=== PATIENT | male | born 1965 | race Caucasian/White ===

== ENCOUNTER 2020-09-18 10:10 | Outpatient (CLI) | payer BC, SELFPAY ==
[2020-09-22 23:49] LABS: Patient Race White; SARS-CoV-2 RNA Undetected (Undetected); SARS-CoV-2 Specimen Source Nasal
== END 2020-09-18 10:30 ==
PROVIDERS: PCP Family Medicine; Visit Provider Family Medicine
DX: R05 Cough (principal); R06.02 Shortness of breath
CPT/HCPCS: U0003

== ENCOUNTER 2020-09-23 15:19 | Outpatient (REF) | payer BC, SELFPAY ==
[2020-09-28 16:08] LABS: SARS-CoV-2 RNA Undetected (Undetected); SARS-CoV-2 Specimen Source Nasopharynx
== END 2020-09-23 15:39 ==
LOC: NCHCN 15:19
PROVIDERS: PCP Family Medicine; Visit Provider Nurse Practitioner Family
DX: J06.9 Acute upper respiratory infection, unspecified (principal); Z11.59 Encounter for screening for other viral diseases
CPT/HCPCS: 87449; U0003

== ENCOUNTER 2020-10-06 03:45 | Outpatient (CLI) | payer BC, SELFPAY ==
[2020-10-06 12:28] LABS: Abs Immature Grans 0.02 10^3/uL (0.0-0.06); Absolute Basophil Count 0.03 10^3/uL (0.0-0.2); Absolute Eosinophil Count 0.15 10^3/uL (0.0-0.7); Absolute Lymphocyte Count 1.85 10^3/uL (1.2-3.4); Absolute Monocyte Count 0.54 10^3/uL (0.1-0.8); Absolute Neutrophil Count 2.44 10^3/uL (1.2-6.7); Basophils % 0.6; HGB 14.3 g/dL (13.5-17.5); Immature Grans % 0.4; Lymphocytes % 36.8; MCH 31.4 pg (27.0-33.0); MCV 92.3 fL (80-95); MPV 10.1 fL (8.0-11.0); Monocytes % 10.7; Neutrophils % 48.5; Nucleated RBC 0 %; Platelet Count 205 10^3/uL (130-400); RBC 4.55 10^6/uL (4.36-5.78); RDW 13.3 % (11.8-14.1); RDW-SD 45.1 fL; WBC 5.03 10^3/uL (4.4-10.8)
[2020-10-06 12:37] LABS: Mono Screening Negative (Negative)
[2020-10-06 13:34] LABS: ALT 40 U/L (16-63); AST 20 U/L (15-37); Albumin 4.1 g/dL (3.4-5.0); Alkaline Phosphatase 87 U/L (46-116); Anion Gap 7.4 mmol/L (3-11); BUN 13 mg/dL (7-18); Bilirubin, Total 0.6 mg/dL (0.2-1.0); CO2 30.6 mmol/L (21.0-32.0); CREATININE 1.04 mg/dL (0.70-1.30); Calcium 9.1 mg/dL (8.5-10.1); Calculated LDL 154 mg/dL (<100); Chloride 102 mmol/L (98-107); Cholesterol 253 mg/dL (<200); Ferritin 163 ng/mL (26-388); Glucose 100 mg/dL (74-106); HDL Cholesterol 54 mg/dL (40-60); Potassium 4.6 mmol/L (3.5-5.1); Sodium 140 mmol/L (136-145); Total Protein 7.1 g/dL (6.4-8.2); Triglyceride 225 mg/dL (<150)
[2020-10-14 09:32] LABS: PSA, Screening 0.4 ng/mL (0-3.5)
== END 2020-10-06 04:05 ==
PROVIDERS: PCP Family Medicine; Visit Provider Nurse Practitioner Family
DX: Z00.00 Encounter for general adult medical examination without abnormal findings (principal); R53.83 Other fatigue; Z13.220 Encounter for screening for lipoid disorders; Z12.5 Encounter for screening for malignant neoplasm of prostate
CPT/HCPCS: 36415; 80053; 80061; 84153; 82728; 85025; 86308

== ENCOUNTER 2020-10-15 07:12 | Outpatient (CLI) | payer BC, SELFPAY ==
--- NOTE | 2020-10-15 08:15 | RT.EKG_ITS ---
APPROVED REPORT Exam: Resting ECG Patient Location: O HR:86 bpm ECG Measurements Heart Rate 86 AXIS IL 148 P 21 QRSd 84 QRS 54 QT 360 T 52 QTc 432 Conclusion Sinus rhythm...normal P axis, V-rate 60- 99 Normal Electrocardiogram
== END 2020-10-15 07:32 ==
PROVIDERS: PCP Family Medicine; Visit Provider Nurse Practitioner Family
DX: R06.09 Other forms of dyspnea (principal)
CPT/HCPCS: 93005; 93010

== ENCOUNTER 2020-10-15 11:48 | Outpatient (CLI) | payer BC, SELFPAY ==
--- NOTE | 2020-10-15 06:45 | DI.RAD_ITS ---
EXAM: XR CHEST 2V PA LATERAL CLINICAL HISTORY: dyspnea,r06.00 TECHNIQUE: 2D digital imaging was performed. COMPARISON: CR LUMBAR SPINE COMPLETE from 01/13/2009 CR LUMBAR SPINE COMPLETE from 03/09/2013 CR LUMBAR SPINE COMPLETE from 10/31/2014 FINDINGS: The heart size is normal. The aorta appears normal in diameter. The lungs are suboptimally inflated . There is atelectasis versus scarring at the left lung base. No infiltrate, effusion or mass is se en. IMPRESSION: No acute pulmonary findings. DATA REPOSITORY: RADIATION DOSE DELIVERED:
== END 2020-10-15 12:08 ==
PROVIDERS: PCP Family Medicine; Visit Provider Nurse Practitioner Family
DX: R06.00 Dyspnea, unspecified (principal)
CPT/HCPCS: 71046

== ENCOUNTER 2021-03-02 13:36 | Outpatient (CLI) | payer OTHER, SELFPAY ==
--- NOTE | 2021-03-02 13:30 | RT.EKG_ITS ---
APPROVED REPORT Exam: Resting ECG Patient Location: O HR:62 bpm ECG Measurements Heart Rate 62 AXIS AK 158 P 16 QRSd 78 QRS 41 QT 413 T 51 QTc 420 Conclusion Sinus rhythm...normal P axis, V-rate 60- 99
== END 2021-03-02 13:37 | disposition home or self-care (01) ==
LOC: DI.CM 13:36
PROVIDERS: PCP Family Medicine; Visit Provider Family Medicine
DX: R55 Syncope and collapse (principal)
CPT/HCPCS: 93010

== ENCOUNTER → 2021-03-09 01:23 | Outpatient (CLI) | payer OTHER, SELFPAY ==
--- NOTE | 2021-03-09 06:45 | DI.NM_ITS ---
APPROVED REPORT Exam: Pharmacologic, paired with low level exercise Patient Location: Out-Patient Room/Bed: Stress Nurse: Steffany Guidry RN Ordering Provider:YEIMI LONGORIA, Contact Number: [phone] BMI: 28.69 Baseline Rhythm: Sinus Rhythm Indications: fatigue, syncope Medical History Medical History: severe generalized anxiety disorder, chronic pain disorder, depressive disorder, smo ker (former) Cardiac Medications: Albuterol sulfate inhaler Allergies: codeine Cardiac Risk Factors: Smoker (former), asthma, family hx Previous Cardiac Procedures: None Pretest Chest Pain Characteristics: mild/moderate SOB Exercise History: Sedentary Physical Disabilities: None Lung Sounds: Clear to auscultation Heart Sounds: Regular Stress Test Details Test: Pharmacologic stress was paired with low level exercise. Reason for pharmacologic stress test: changed from exercise stress test due to inability to reach t arget heart rate. Reversal agent Aminophyline 50 mg, given intravenously for nausea, dizziness, and dyspnea. Nuclear Acquisition: Rest Tc-99m/Stress Tc-99m 1 day Rest Isotope: Tc-99m Sestamibi. Dose: 11.8 Date: 03/09/2021 Injection Time: 0900 Stress Isotope: Tc-99m Sestamibi. Dose: 37.0 Date: 03/09/2021 Injection Time: 1030 HR Resting HR Supine: 78 bpm Max Heart Rate (APMHR): 165 bpm Resting HR Standin bpm Target HR (85% APMHR): 140 bpm Max HR Achieved: 136 bpm % of APMHR: 82 Recovery HR: 93 bpm HR response to stress: Normal HR response to stress BP Resting BP Supine: 120/90 mmHg Resting BP Standin/96 mmHg Max BP: 154/82 mmHg Recovery BP: 142/96 mmHg BP response to stress: Normal blood pressure response to stress. ECG Resting ECG: Sinus Rhythm Ectopy: None Stress ECG: Sinus Tachycardia ST Change: No significant ST segment changes noted Arrhythmia: None Recovery ECG: Sinus Rhythm Recovery ST Change: No significant ST segment changes noted Recovery Arrhythmia: None Clinical Reason for Termination: it field technician concern for pt safety Stress Symptoms: Dyspnea, Dizziness, General Fatigue Exercise duration: 8 min56 sec Highest Stage Reached: Stage 2: 2.5 mph at 12% grade. Exercise capacity: 6.29 METs Rate Pressure Product: [id number] Stress ECG Conclusion 1. This is a pharmacological stress test as patient was unable to reach target heart rate with exerti on. 2. The patient developed significant but nonspecific symptoms after medication injection. 3. There was no evidence of ischemia on the ECG portion of the exam. Stress Test Summary STAGE Time (mins) Speed (mph) Grade (%) HR BP SYMPTOMS METS Supine 78 120/90 mild/moderate SOB Standing 94 128/96 1 3 1.7 10 117 150/82 4.6 2 6 2.5 12 133 mild dizziness 7 1 min post Lexiscan injection 130 128/78 moderate dizziness 3 min post Lexiscan injection 120 142/72 moderate dizziness, nausea 6 min post Lexiscan injection 112 152/90 9 min post Lexiscan injection 93 142/96 symptoms improved @ stop of ousmane exercise 108 154/82 Patient gait slowed and steps heavier during Stage 2 of exercise. Branch Operations Specialist stopped exercise test du e to patient safety. After approximately 1 minute of standing rest, transition to walking damir 1 mph, 0 incline. During recovery period, pt stated that nausea and dizziness were increasing, room is spi nning, felt like he was drowning. Observed increased work of breathing. Aminophylline administered . Pt monitored for 14 minutes in recovery until symptoms were improved and patient was able to ambula te for remainder of MPI testing. MPI Conclusion The patient's ejection fraction was 55% with stress. There were no wall motion abnormalities. There is no evidence of echo portion of the exam. This represents a normal SPECT stress test.
[2021-03-09] MEDS: Regadenoson 0.4 MG/5 ML SYR IVP (10:59)
== END ==
PROVIDERS: PCP Family Medicine; Visit Provider Family Medicine
DX: R53.83 Other fatigue (principal); R55 Syncope and collapse; Z87.891 Personal history of nicotine dependence; J45.909 Unspecified asthma, uncomplicated; Z82.49 Family history of ischemic heart disease and other diseases of the circulatory system
CPT/HCPCS: 78452; 93017; J0280; J2785

== ENCOUNTER 2021-03-09 04:17 | Outpatient (CLI) | payer OTHER, SELFPAY ==
[2021-03-09 12:37] LABS: HCT 42.3 % (40.0-50.0); HGB 14.1 g/dL (13.5-17.5); MCH 31.1 pg (27.0-33.0); MCHC 33.3 % (32.0-36.0); MCV 93.2 fL (80-95); MPV 10.1 fL (8.0-11.0); Platelet Count 196 10^3/uL (130-400); RBC 4.54 10^6/uL (4.36-5.78); RDW 12.8 % (11.8-14.1); RDW-SD 43.8 fL; WBC 6.16 10^3/uL (4.4-10.8)
[2021-03-09 12:45] LABS: Hemoglobin A1C 5.3 % (<5.7)
[2021-03-09 12:53] LABS: ESR 2 mm//hr (0-20)
[2021-03-09 13:28] LABS: Iron 94 ug/dL (65-175)
[2021-03-09 13:55] LABS: ALT 33 U/L (16-63); AST 12 U/L (15-37); Alkaline Phosphatase 82 U/L (46-116); Anion Gap 5.5 mmol/L (3-11); BUN 18 mg/dL (7-18); Bilirubin, Total 0.5 mg/dL (0.2-1.0); CO2 31.5 mmol/L (21.0-32.0); CREATININE 1.1 mg/dL (0.70-1.30); Calcium 8.9 mg/dL (8.5-10.1); Calculated LDL 130 mg/dL (<100); Chloride 106 mmol/L (98-107); Cholesterol 228 mg/dL (<200); Ferritin 165 ng/mL (26-388); Glucose 88 mg/dL (74-106); HDL Cholesterol 46 mg/dL (40-60); Potassium 4.3 mmol/L (3.5-5.1); Sodium 143 mmol/L (136-145); Total Protein 7.1 g/dL (6.4-8.2); Triglyceride 260 mg/dL (<150); Vitamin B12 386 pg/mL (193-986)
[2021-03-11 10:33] LABS: Lyme Ab w Rflx to Lyme Confirm Negative (Negative)
[2021-03-12 10:00] LABS: Testosterone, Total 371 ng/dL (240-950)
== END 2021-03-09 04:18 | disposition home or self-care (01) ==
LOC: LBO 04:18
PROVIDERS: PCP Family Medicine; Visit Provider Family Medicine
DX: E11.9 Type 2 diabetes mellitus without complications (principal); R55 Syncope and collapse; R53.83 Other fatigue; G47.9 Sleep disorder, unspecified; G89.4 Chronic pain syndrome
CPT/HCPCS: 36415; 80053; 80061; 84403; 85027; 85652; 82607; 82728; 83036; 83540; 86618

== ENCOUNTER 2021-03-26 01:10 | Outpatient (CLI) | payer OTHER, SELFPAY ==
--- NOTE | 2021-03-26 14:05 | DI.US_ITS ---
APPROVED REPORT EXAM: Comprehensive 2D, Doppler, and color-flow Echocardiogram Patient Location: Out-Patient [facility] Of Care Manager: Mirna Jacome RDCS (AE) Indications: Syncope, Fatigue Other Information Study Quality: Adequate Conclusion Left Ventricle : The left ventricle is normal size. The left ventricular systolic function is normal. The left ventricular ejection fraction is within the normal range. There is normal left ventricular wall thickness. There is normal LV segmental wall motion. The left ventricular diastolic function is normal. LVEF is 60-65%. Right Ventricle : The right ventricle is normal size. The right ventricular systolic function is norm al. The RVSP is 22.4mmHg. Atria : The left atrium size is normal. The right atrium size is normal. Mitral Valve : The mitral valve is normal in structure. Mild mitral regurgitation. No evidence of lexy ral valve stenosis. Great Vessels : The aortic root is normal in size. The ascending aorta is normal in size. Aortic arch is not well visualized. IVC is normal in size and collapses >50% with inspiration. Wall motion Left Ventricle The left ventricle is normal size. The left ventricular systolic function is normal. The left ventric ular ejection fraction is within the normal range. There is normal left ventricular wall thickness. T here is normal LV segmental wall motion. The left ventricular diastolic function is normal. There is no ventricular septal defect visualized. LVEF is 60-65%. Right Ventricle The right ventricle is normal size. The right ventricular systolic function is normal. The RVSP is 22 .4mmHg. Atria The left atrium size is normal. The right atrium size is normal. The interatrial septum is intact wit h no evidence for an atrial septal defect. Aortic Valve The aortic valve is normal in structure. Aortic valve is trileaflet. There is no aortic valvular sten osis. No aortic regurgitation is present. Mitral Valve The mitral valve is normal in structure. No evidence of mitral valve stenosis. Mild mitral regurgitat ion. Tricuspid Valve The tricuspid valve is normal in structure. There is no tricuspid valve stenosis. Trace tricuspid reg urgitation. Pulmonic Valve The pulmonary valve is normal in structure. There is no pulmonic valvular stenosis. Trace pulmonic re gurgitation. Great Vessels The aortic root is normal in size. The ascending aorta is normal in size. Aortic arch is not well vis ualized. IVC is normal in size and collapses >50% with inspiration. Pericardium There is no pericardial effusion. 2D Dimensions IVSD d PLAX 0.94 cm M: 0.6-1.2 LV Vol A2C d MOD 122.5 mL LVPW d PLAX 0.94 cm M: 0.6 - 1.2 LV Vol A4C d MOD 141.9 mL LVID d PLAX 4.93 cm M: 4.2 - 5.8 LA vol/ BSA A2C s A-L 19.0 mL/m2 LVDs 3.25 cm M: 2.5 - 4.0 LA vol/ BSA A4C s A-L 33.8 mL/m2 Ao Root d 3.48 cm M: 3.1 - 3.7 LA Vol/ BSA Biplane s A-L 29.1 mL/m2 RA Area A4C 15.04 cm2 LA Area A4C s MOD 22.39 cm2 RA Vol/ BSA A4C s A-L 19.2 mL/m2 LA Area A2C s MOD 14.64 cm2 Ao Asc Diam d 3.40 cm M: 2.6 - 3.4 LV EF A4C MOD 60.6 % LV EF Teichholz 62.4 % LV EF A2C MOD 64.6 % LVEF (Feliciano's) 63.05 % M: 52 - 72 LV EF Biplane MOD 63.0 % LV Volume 99.50 mL M: 62 - 150 SV 85.10 mL LV Volume Index 47.15 mL/m2 M: 34 - 74 SV Index 40.36 mL/m2 LV Vol Biplane MOD 135.0 mL FS 33.75 % M-Mode TAPSE 2.15 cm (M/F) >1.7 LV Diastology MV E' medial 0.071 (>0.07 m/s) E/A Ratio 0.9 LV E/e MED 8.90 (<14) MV E Vmax 0.64 (0.4-1.3 m/s) MV E' lateral 0.099 (>0.1 m/s) MV A Vmax 0.75 (0.4-1.3 m/s) LV E/e LAT 6.45 (<14) MV E/A Ratio 0.81 MV E/E' medial 8.95 MV E/E' lateral 6.47 Aortic Valve LVOT Area 3.94 cm2 AoV Area Vmax 2.95 cm2 LVOT Vmax 0.94 m/s AoV Area/ BSA (Vmax) 1.40 cm2/m2 LVOT Mean Dean. 0.60 m/s NANCIE Mean Dean. 2.95 cm2 LVOT Peak Grad 3.5 mmHg NANCIE Mean Dean. Index 1.40 cm2/m2 LVOT Mean Grad 1.7 mmHg LVOT VTI 0.213 m LVOT Diam s 2.20 cm AoV Vmax 1.25 m/s Velocity Ratio 0.75 AoV Mean Dean. 0.80 m/s AoV Peak Grad 6.3 mmHg LVOT SV 83.98 mL AoV Mean Grad 2.9 mmHg AoV VTI 0.242 m AoV Area VTI 3.47 cm2 AoV Area/ BSA (VTI) 1.64 cm/m2 Mitral Valve MV DT 198 (160-240 msec) MV PHT 57 msec MV Area PHT 3.84 cm2 Pulmonary Valve PV Vmax 0.94 (0.5-1.5 m/s) RVOT Peak Gr. 1.69 mmHg PV Peak Grad 3.5 mmHg RVOT Mean Gr. 0.70 mmHg PV Mean Grad 1.7 mmHg RVOT VTI 0.118 m PV VTI 0.178 m RVOT Vmax 0.65 m/s Tricuspid Valve TR Peak Grad 19.3 mmHg TR Vmax 2.20 m/s RA Pressure 3.00 mmHg RVSP (TR) 22.4 mmHg
== END 2021-03-26 01:30 ==
PROVIDERS: PCP Family Medicine; Visit Provider Family Medicine
DX: R55 Syncope and collapse (principal); R53.83 Other fatigue; I34.0 Nonrheumatic mitral (valve) insufficiency
CPT/HCPCS: 93306